=== PATIENT | male | born 1970 | race Caucasian/White ===

== ENCOUNTER → 2016-08-07 | Outpatient (CLI) | payer OTHER ==
--- NOTE | 2016-08-07 13:04 | XR ---
EXAMINATION TYPE: XR knee complete RT DATE OF EXAM: 08/07/2016 1:00 PM CLINICAL HISTORY: Right knee pain after injury. TECHNIQUE: Three views of the right knee are obtained. COMPARISON: Right leg x-ray December 31, 2011. FINDINGS: There is no acute fracture/dislocation evident in right knee. There is mild to moderate erik int space loss with mild spurring patellofemoral compartment. Increased density suprapatellar level i s felt to reflect moderate to large joint effusion, nonspecific finding. IMPRESSION: There is no acute fracture or dislocation in the right knee.
== END | disposition home or self-care (01) ==
LOC: RADXRMAIN 12:36
PROVIDERS: ATTEND Emergency Medicine
DX: S83.91XA Sprain of unspecified site of right knee, initial encounter (principal)

== ENCOUNTER → 2016-08-15 | Outpatient (CLI) | payer OTHER ==
--- NOTE | 2016-08-15 10:28 | MR ---
EXAMINATION TYPE: MR knee RT wo con DATE OF EXAM: 08/15/2016 9:33 AM COMPARISON: Plain films 07 August 2016 HISTORY: Rt knee pain, injury TECHNIQUE: Multiplanar, multisequence imaging of the right knee is performed without IV contrast. FINDINGS: MEDIAL MENISCUS: Linear increased signal is present within the posterior horn and may possibly commun icate with the articular surface especially at its medial extent. LATERAL MENISCUS: Anterior horn of the lateral meniscus shows linear increased signal which extends t o the articular surface. Linear increased signal is also present within the posterior horn without de finite communication to the articular surface, findings may represent horizontal tear CRUCIATE LIGAMENTS: Intact fibers of the anterior cruciate ligament are not identified, posterior cru ciate ligament is intact. COLLATERAL LIGAMENTS: The medial collateral ligament and lateral collateral ligament complex are inta ct and unremarkable. Adjacent to the lateral collateral ligamentous there are multilobulated multisep tated cystic changes measuring 2.8 x 2.6 x 1 cm present as well as an effusion. EXTENSOR MECHANISM: Visualized quadriceps and patellar tendons are intact. EFFUSION: Small suprapatellar effusion, fluid is present bilaterally along the lateral femoral condy le POPLITEAL CYST: No sizable popliteal cyst TRICOMPARTMENT SPACES: Are maintained, some joint space loss is mild laterally CARTILAGE: There is grade II to III chondromalacia in the lateral compartment BONE MARROW SIGNAL: No focal abnormal marrow signal is appreciated. OTHER: No additional significant abnormality is appreciated. IMPRESSION: Findings compatible with tear of the anterior horn lateral meniscus, possibly posterior horn medial m eniscus at its lateral extent, findings suggest anterior cruciate ligament tear, ganglion cyst suspec tahir laterally as described, osteoarthritis.
== END | disposition home or self-care (01) ==
LOC: RADMRIMAIN 08:52
PROVIDERS: ATTEND Emergency Medicine
DX: S83.91XA Sprain of unspecified site of right knee, initial encounter (principal)

== ENCOUNTER 2016-09-12 08:29 | Day surgery (SDC) | payer OTHER ==
[2016-09-11 11:51] VITALS: BMI 29.0
--- NOTE | 2016-09-11 12:09 | HP ---
DATE OF ADMISSION: CHIEF COMPLAINT: Right knee pain. 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 He was stepping out a vehicle in the fire station parking lot when he slipped on some ice, hyperextending his right knee. He notes significant pain and giving way since. He has been using crutches. Currently he is off work. He has been taking Motrin and Tylenol for this. He had a previous right knee arthroscopy. Past medical history is significant for hypertension. Past surgical history is significant for bilateral knee arthroscopy. CURRENT MEDICATIONS: 1. Aspirin. 2. Lipitor. 3. Niaspan. 4. [place]. Family history is negative. SOCIAL HISTORY: Previous tobacco use; however, he quit in 1989. A 16-point review of systems otherwise reviewed and is noncontributory. On examination, the patient is approximately 6 foot 1, 220 pounds of mesomorphic habitus. HEENT exam is nonfocal. Neck is supple. He has painless passive motion of his right hip. Straight leg raise is negative. Active motion of the right knee -8 to 125 degrees of flexion. He has a trace effusion. He is tender about the lateral joint line. Collaterals are stable, Delia is 2+ with a soft endpoint. Pivot shift is positive. Posterior drawer is negative. Tommy's elicits lateral pain. He has genu valgum alignment. His distal neurovascular exam appears be intact in the right lower extremity. X-rays to include weight-bearing, notch, lateral, and merchant views of the right knee obtained in the office show moderate lateral compartment narrowing. MRI report 08/15/2016 of the right knee shows an anterior horn lateral meniscal tear, ACL rupture and possible posterior medial meniscal tear. Lateral compartment degenerative changes are noted. IMPRESSION: 1. Right knee internal derangement with possible medial and lateral meniscal tears in addition to old ACL tear. 2. Right knee lateral compartment osteoarthrosis. RECOMMENDATIONS: I talked to the patient at length regarding his treatment options. He is having significant pain and mechanical symptoms after an acute injury. After thorough discussion, he opts to proceed with surgery. We will plan to proceed with arthroscopic evaluation with possible partial medial and lateral meniscectomy, in addition to ACL debridement. Risks and benefits were discussed at length in layman's terms. We will likely perform that as an outpatient procedure.
[~2016-09-12 08:29] MED LIST: DEXAMETHASONE SOD PHOSPHATE 10 MG/ML 1 ML VIAL IV ONE; LACTATED RINGERS 1,000 ML IV SCH; MIDAZOLAM 2 MG/2 ML VIAL IV PRN; SCOPOLAMINE 1.5MG/72HR PATCH TRANSDERM ONE; ceFAZolin 2 GM in SODIUM CHLORIDE 0.9% 100 ML IVPB ONE
[2016-09-12] MEDS: ONDANSETRON 4 MG/2 ML VIAL IVP ONE ×2 (09:12→10:27)
[2016-09-12] MEDS ORDERED: KETAMINE 10 MG/ML 20 ML VIAL ONE (09:37)
[2016-09-12] MEDS ORDERED: MIDAZOLAM 2 MG/2 ML VIAL ONE (09:37)
[2016-09-12] MEDS ORDERED: fentaNYL (PF) 50 MCG/ML 2 ML AMP ONE (09:37)
[2016-09-12] MEDS ORDERED: PROPOFOL 10 MG/ML 20 ML VIAL IV ONE (09:37)
--- NOTE | 2016-09-12 10:25 | P.OP ---
Date of Procedure: 09/12/16 Preoperative Diagnosis: Right knee internal derangement Postoperative Diagnosis: Right knee posterior lateral meniscal tear/posterior medial meniscal tear/grade 3 chondral injury distal lateral femoral condyle/reactive synovitis of the medial and lateral compartments/chronic ACL tear Procedure(s) Performed: Right knee arthroscopic partial lateral meniscectomy/partial medial meniscectomy /lateral femoral chondrectomy/partial synovectomy of the medial and lateral compartments. Anesthesia: GETA Surgeon: Randy Murphy Funeral Director #1: Juwan Tamez Estimated Blood Loss (ml): 5 Pathology: none sent Condition: stable Disposition: PACU Indications for Procedure: The patient's a 45-year-old male presents with progressive right knee pain and mechanical symptoms after a recent injury at work. He was noted have a possible lateral meniscal tear in addition to chronic ACL tear. A discussion of the risks and benefits of operative intervention versus conservative measures was made with the patient. He opted to proceed with surgery. Operative risks to include infection, neurovascular injury, development of blood clots, possible incomplete resolution of symptoms, possible persistence of instability need for subsequent procedures was discussed. Informed consent was obtained. I did discuss the fact he has a chronic ACL tear along with lateral compartment osteoarthrosis and at this point we are not contemplating reconstruction. Operative Findings: As below Description of Procedure: The patient was brought to the operating room, and after induction of spinal anesthesia and sedation I examined the right knee. Collaterals were stable, Delia was 2+ with a soft endpoint. Pivot shift was positive. Posterior drawer was negative. The right lower extremity was prepped and draped in normal fashion. A superior lateral portal was made through a 3 mm skin incision superior and lateral to the patella. A moderate effusion was encountered. A lateral portal was made through a 5 mm vertical skin incision lateral to the patellar tendon above the joint. Diagnostic arthroscopy was performed. A medial portal was made through a similar incision medial to the patellar tendon above the joint line. On inspection of the medial compartment, he is noted to have an undersurface tear involving the posterior horn of the medial meniscus in the white-white junction. This debris back to stable base with straight baskets and a motorized shaver. The edges were contoured. A grade 1-2 chondral changes were noted diffusely in the medial compartment. Reactive synovitis from the anterior medial compartment was debrided with motorized shaver. On inspection the notch, the anterior cruciate ligament appeared to have previously been ruptured and scarred to the posterior cruciate ligament appeared lateral wall was taken. There is no significant impingement in the notch. On inspection of the lateral compartment, he was noted have an oblique tear involving the posterior most aspect of the lateral meniscus in the white-white junction. This was debrided back to stable base with straight baskets and a motorized shaver. A grade 3 chondral injury was noted involving the distal lateral portion of the lateral femoral condyle. There was a small loose chondral fragment debrided back to stable base with a motorized shaver. Reactive synovitis involving the anterolateral compartment was debrided with a motorized shaver. On inspection patellofemoral articulation minimal degenerative changes were noted. The gutters were clear debris. The knee was then thoroughly irrigated. The portals were closed with Steri-Strips. A sterile dressing was applied in addition to a compression stocking. The patient was awoken from sedation and transferred to the recovery room in good condition. Blood loss was estimated at 5 mL. No complications were incurred.
[2016-09-12] MEDS ORDERED: KETOROLAC 30 MG/ML 1 ML VIAL IVP ONE (10:27)
[2016-09-12] MEDS: HYDROmorphone 1 MG/ML 1 ML SYRINGE IVP PRN ×4 (10:27→10:41)
[2016-09-12 10:30] VITALS: TEMP 98.9
[2016-09-12] MEDS: MEPERIDINE 50 MG/ML SYRINGE IVP ONE ×2 (10:45→10:57)
[2016-09-12] MEDS ORDERED: HYDROcodone/APAP 7.5-325MG 1 EACH TAB PO ONE (12:39)
[2016-09-12 13:28] VITALS: BP 136/79; PULSE 61; RESP 20
== END 2016-09-12 14:07 | disposition home or self-care (01) ==
LOC: OR 08:29
PROVIDERS: ATTEND Orthopaedic Surgery
DX: S83.281A Other tear of lateral meniscus, current injury, right knee, initial encounter (principal); S83.241A Other tear of medial meniscus, current injury, right knee, initial encounter; M65.861 Other synovitis and tenosynovitis, right lower leg; S83.511A Sprain of anterior cruciate ligament of right knee, initial encounter; W00.2XXA Other fall from one level to another due to ice and snow, initial encounter; Y92.481 Parking lot as the place of occurrence of the external cause; Y99.0 Civilian activity done for income or pay; M23.91 Unspecified internal derangement of right knee; M17.11 Unilateral primary osteoarthritis, right knee; M25.461 Effusion, right knee; I10 Essential (primary) hypertension; Z79.1 Long term (current) use of non-steroidal anti-inflammatories (NSAID); Z79.82 Long term (current) use of aspirin; Z79.891 Long term (current) use of opiate analgesic; Z79.899 Other long term (current) drug therapy; Z87.891 Personal history of nicotine dependence
CPT/HCPCS: 29880; J2250; J1100; J2175; J0690; J2405; J3010; J1885; J1170; J2704

== ENCOUNTER → 2019-03-02 | Outpatient (CLI) | payer OTHER ==
--- NOTE | 2019-03-02 17:02 | XR ---
EXAMINATION TYPE: XR knee complete RT DATE OF EXAM: 03/02/2019 CLINICAL HISTORY: Pain after injury. TECHNIQUE: Three views of the right knee are obtained. COMPARISON: X-ray August 07, 2016. FINDINGS: There is no acute fracture/dislocation evident in right knee. Stable mild right foraminal joint space loss. Overlying clothing material distal femur level is noted. IMPRESSION: There is no acute fracture or dislocation in the right knee.
== END ==
LOC: RADXRMAIN 16:44
PROVIDERS: ATTEND Emergency Medicine
DX: S83.91XA Sprain of unspecified site of right knee, initial encounter (principal)

== ENCOUNTER → 2019-03-04 | Outpatient (CLI) | payer OTHER ==
--- NOTE | 2019-03-04 09:21 | MR ---
EXAMINATION TYPE: MR knee RT wo con DATE OF EXAM: 03/04/2019 COMPARISON: 08/15/2016 HISTORY: 48-year-old male Right knee pain, sprain TECHNIQUE: Multiplanar, multisequence imaging of the right knee is performed without IV contrast. FINDINGS: Redemonstrated ACL rupture. Anterior tibial translation is noted. There is some mild increased signal within the proximal PCL fibers, similar to prior exam, partial te ar difficult to exclude. MCL and LCL complex are intact. Redemonstrated tear of the medial meniscus. More of the tear now extends into the posterior horn and to the posterior root. The tear has enlarged now with a large, multilocular parameniscal cyst measuri ng up to 1.7 cm craniocaudal, 1.1 cm AP, and nearly 5 cm wide extending from anterior to medial. Foca l high-grade chondral lesion mid weightbearing aspect of the medial femoral condyle now present measu ring 5 mm wide and 1.3 cm AP dimension. Underlying mild marrow edema. Undersurface oblique tear now seen involving the junction of the posterior horn and body of the later al meniscus. Additional inner margin radial tear near the root, and oblique tear extending along the lateral meniscal body. No focal chondral lesion within the lateral compartment. Patellofemoral compartment articular cartilage is maintained. There is focal [id number] cartila ge irregularity along the superior aspect of the medial trochlear facet. Extensor mechanism intact. Trace effusion/synovitis within the deep infrapatellar bursa and a small-t o-moderate knee joint effusion. Trace early Zarate's cyst formation. There is aberrant high takeoff of the anterior tibial artery coursing anterior to the popliteus. Over all preserved muscle bulk. No suspicious bone marrow replacement. IMPRESSION: 1. Redemonstrated ACL rupture. 2. Mild intrinsic signal within the proximal PCL fibers could represent a partial tear. 3. Enlarging, extensive medial meniscal tear now with greater involvement of the posterior horn and p osterior root. A large multilocular parameniscal cyst has developed and is located anteriorly and med ially spanning up to 5 cm wide and 1.7 cm thick. 4. New 1.3 x 0.5 cm high-grade chondral defect mid weightbearing aspect medial femoral condyle with m ild reactive marrow edema. 5. New undersurface tear at the junction of the posterior horn and body of the lateral meniscus and i nner margin radial tear near the posterior root. 6. Focal mild to moderate irregular cartilage loss along the superior aspect of the medial trochlear facet. 7. Note: Incidental aberrant high takeoff of the anterior tibial artery.
== END ==
LOC: RADMRIMAIN 06:35
PROVIDERS: ATTEND Emergency Medicine
DX: S83.511A Sprain of anterior cruciate ligament of right knee, initial encounter (principal); S83.241A Other tear of medial meniscus, current injury, right knee, initial encounter; M23.006 Cystic meniscus, unspecified meniscus, right knee; S83.281A Other tear of lateral meniscus, current injury, right knee, initial encounter; M79.89 Other specified soft tissue disorders